=== PATIENT | female | born 1960 | race Caucasian/White ===

== ENCOUNTER 2016-07-14 08:46 | Observation (INO) | payer BC ==
[2016-07-11 14:54] VITALS: BMI 26.7
[2016-07-14] VITALS (17 sets, daily range): BP systolic 86–143; RESP 14–20; TEMP 97.3–99.9; Ht 161.3 cm; Wt 69.4 kg
[~2016-07-14] VITALS: Ht 161.3 cm; Wt 69.4 kg
[~2016-07-14 08:46] MED LIST: BUPIVACA/EPI 0.5% PF 10 ML NERVEBLOCK ONE; DEXAMETHASONE 4 MG/ML VIAL IV ONE; DILAUDID 1 MG/ML AMP IV ONE; FENTANYL 250 MCG/5 ML AMP IV ONE; GLYCOPYRROLATE 0.2 MG/ML VIAL IV ONE; LIDOCAINE 2% JELLY 30 ML TOPICAL ONE; LIDOCAINE 2% SYR 5 ML IV ONE; NEOSTIGMINE 10 MG/10 ML VIAL IV ONE; ONDANSETRON 4 MG VIAL IV PUSH ONE; PROPOFOL 20 ML PER ML IV ONE; ROCURONIUM 50 MG VIAL IV ONE
[2016-07-14] MEDS ORDERED: CEFAZOLIN 2,000 MG in SODIUM CHLORIDE 0.9% 100 ML IV ONE (09:05)
[2016-07-14] MEDS ORDERED: SCOPOLAMINE PATCH TRANSDERM ONE (09:40)
[2016-07-14] MEDS ORDERED: LIDOCAINE 1% BUFFERED 1 ML SYR INTRADERM PRN (09:40)
[2016-07-14] MEDS ORDERED: MIDAZOLAM 2 MG/2 ML INJ IV ONE (09:40)
[2016-07-14] MEDS ORDERED: GLYCOPYRROLATE 0.2 MG/ML VIAL IV ONE (09:40)
[2016-07-14] MEDS: LACT RINGERS 1,000 ML IV SCH ×3 (09:45→23:22)
[2016-07-14] MEDS ORDERED: ONDANSETRON 4 MG VIAL IV PRN (12:05)
[2016-07-14] MEDS ORDERED: MEPERIDINE 25 MG/ML IV PRN (12:05)
[2016-07-14] MEDS ORDERED: MORPHINE 2 MG/ML SYR IV PRN (12:05)
[2016-07-14] MEDS ORDERED: DILAUDID 1 MG/ML AMP IV PRN (12:05)
[2016-07-14] MEDS ORDERED: OXYCODONE 5 MG TAB PO PRN (12:05)
[2016-07-14] MEDS ORDERED: MORPHINE 4 MG/ML SYR IV PRN (12:05)
[2016-07-14] MEDS ORDERED: PROMETHAZINE 25 MG/ML VIAL IV PRN (17:35)
[2016-07-14] MEDS ORDERED: LACT RINGERS 500 ML IV ONE (21:10)
[2016-07-14] MEDS ORDERED: ONDANSETRON 4 MG VIAL IV PUSH PRN (21:40)
[2016-07-14] MEDS ORDERED: ONDANSETRON INJ 8 MG in SODIUM CHLORIDE 0.9% 50 ML IV PRN (23:40)
[2016-07-15] MEDS: LACT RINGERS 1,000 ML IV SCH ×2 (00:20→06:21)
[2016-07-15 03:57] VITALS: BP_SYST 96; RESP 16; TEMP 98
[2016-07-15 07:05] VITALS: BP_SYST 96; RESP 16; TEMP 98
[2016-07-17] MEDS ORDERED: REMOVE SCOPALAMINE PATCH XX ONE (09:40)
== END 2016-07-15 06:48 | disposition home or self-care (01) ==
LOC: SURG 08:46 → EMR 21:10 → 3S 23:23
PROVIDERS: ADMIT Obstetrics & Gynecology Reproductive Endocrinology; ATTEND Obstetrics & Gynecology Reproductive Endocrinology
CPT/HCPCS: 88305; 93005